=== PATIENT | female | born 1955 | race Hispanic/Latino ===

== ENCOUNTER 2019-11-12 07:46 | Observation (INO) | payer MEDICARE, OTHER ==
[2019-11-07 11:28] LABS: BASOPHILS % 0.5 % (0.0-1.0); EOSINOPHILS # (AUTO) 0.2 (0.0-0.4); EOSINOPHILS % 2.2 % (0.0-6.0); HEMATOCRIT 40.8 % (34.2-44.1); HEMOGLOBIN 13.9 g/dL (12.0-16.0); LYMPHOCYTES # (AUTO) 2.3 (1.0-3.2); LYMPHOCYTES % 28.7 % (18.0-39.1); MEAN CORPUSCULAR HEMOGLOBIN 29.5 pg (28-32); MEAN CORPUSCULAR HGB CONC 34.1 g/dL (31-35); MEAN CORPUSCULAR VOLUME 86.6 fL (81-99); MONOCYTES # (AUTO) 0.8 (0.2-0.8); MONOCYTES % 9.7 % (4.4-11.3); NEUTROPHILS # (AUTO) 4.6 (2.1-6.9); NEUTROPHILS % 58.5 % (38.7-80.0); PLATELET COUNT 213 x10e3/uL (140-360); RED BLOOD COUNT 4.71 x10e6/uL (3.6-5.1); RED CELL DISTRIBUTION WIDTH 12.8 % (11.7-14.4)
[2019-11-07 11:48] LABS: ALBUMIN 4.8 g/dL (3.5-5.0); ALBUMIN/GLOBULIN RATIO 1.5 (0.8-2.0); ANION GAP 14.7 mmol/L (8-16); CREATININE, SERUM 1.04 mg/dL (0.57-1.11); POTASSIUM 3.7 mmol/L (3.5-5.1)
--- NOTE | 2019-11-07 12:24 | Diagnostic Imaging Report ---
Exam: CHEST 2 VIEWS Date: 11/07/2019 12:21 PM INDICATION: ^[id number] ^[id number] ^PRE-OP Comparison: None FINDINGS: Lines/Tubes:None Lungs:The lungs are well inflated. No focal consolidation or pulmonary edema. Pleura:No pleural effusion. No pneumothorax. Heart/Mediastinum:The cardiomediastinal silhouette is normal in size and contour. Bones/Soft Tissues: No acute osseous abnormality. Moderate multilevel degenerative changes of the spine are noted. Upper abdomen: Unremarkable. IMPRESSION: Negative for acute intrathoracic process. Signed by: Sarbjit Gunter MD on 11/07/2019 12:21 PM
[~2019-11-12] VITALS: Ht 160 cm; Wt 91.6 kg
[~2019-11-12 07:46] MED LIST: AMLODIPINE BESYL5 MG PO; Aspirin PO; LOSARTAN-HCTZ1 EAC1 PO; MYRBETRIQ25 MG PO; TYLENOL ARTHRITIS PO; TYLENOL PO
[2019-11-12] MEDS ORDERED: CEFAZOLIN SOD 1 GM/NS 50ML 100 ML IV ONE (08:37)
[2019-11-12] MEDS ORDERED: ESTROGENS CONJUGATED VAGINAL CR 45 GM TUBE PV ONE (08:45)
[2019-11-12] MEDS ORDERED: LIDOCAINE 1% W/EPINEPHRINE 20 ML VIAL ONE ×3 (08:45→10:39)
[2019-11-12] MEDS ORDERED: BUPIVACAINE HCL 0.5% INJ 30 ML VIAL INJ ONE (08:45)
[2019-11-12] MEDS ORDERED: BUPIVACAINE 0.25% 30ML SDV INJ ONE (08:49)
[2019-11-12] MEDS ORDERED: ACETAMINOPHEN 1000 MG/100 ML 100 ML IV ONE (10:24)
[2019-11-12] MEDS ORDERED: BISACODYL 5 MG TAB EC PO PRN (12:15)
[2019-11-12] MEDS ORDERED: DOCUSATE SODIUM 100 MG CAP PO PRN (12:15)
[2019-11-12] MEDS ORDERED: PROMETHAZINE HCL (IM) 25 MG/ML VIAL IM PRN (12:15)
[2019-11-12] MEDS ORDERED: DIPHENHYDRAMINE HCL 25 MG CAP PO PRN (12:15)
[2019-11-12] MEDS ORDERED: MEPERIDINE HCL INJ 25 MG/ML VIAL IV PRN (12:15)
[2019-11-12] MEDS ORDERED: KETOROLAC TROMETHAMINE 30 MG/ML VIAL IM PRN (12:15)
[2019-11-12] MEDS ORDERED: GLYCOPYRROLATE INJ 0.2 MG/ML VIAL ONE (12:29)
[2019-11-12] MEDS ORDERED: PROPOFOL IV EMULSION 10 MG/ML 20 ML VIAL ONE (12:29)
[2019-11-12] MEDS ORDERED: KETOROLAC TROMETHAMINE 30 MG/ML VIAL ONE (12:29)
[2019-11-12] MEDS ORDERED: ONDANSETRON HCL INJ 2MG/ML 2ML 2 MG/ML VIAL ONE (12:29)
[2019-11-12] MEDS ORDERED: NEOSTIGMINE 1 MG/ML 10ML VIAL ONE (12:29)
[2019-11-12] MEDS ORDERED: LIDOCAINE HCL 2% LOCAL INJ 5 ML SDV VIAL INJ ONE (12:29)
[2019-11-12] MEDS ORDERED: DESFLURANE 240 ML BTL INH ONE (12:29)
[2019-11-12] MEDS ORDERED: DEXAMETHASONE SOD PHOS INJ 4 MG/ML VIAL ONE (12:29)
[2019-11-12] MEDS ORDERED: MIDAZOLAM HCL 2 MG/2 ML VIAL ONE (12:36)
[2019-11-12] MEDS ORDERED: FENTANYL CITRATE/PF 100MCG/2 ML INJ ONE (12:36)
[2019-11-12 14:40] VITALS: BP_SYST 111; BP_DIAS 56; BP_DIAS 66
--- NOTE | 2019-11-12 14:40 | NUR ---
PATIENT RECEIVED LYING IN BED AAOX4 IN NO ACUTE DISTRESS. PATIENT IS PRIMARILY [place] SPEAKING BUT CAN CONVERSE MINIMALLY IN THAI. PATIENT REPORTS VAGINAL PAIN 3/10 AND DOES NOT WANT PAIN MEDICATION AT THIS TIME. CALL LIGHT AND BELONGINGS PLACED NEARBY. I WILL CONTINUE TO MONITOR. JULIANNA, PATIENT'S DAUGHTER, MADE AWARE OF ROOM ASSIGNMENT AND NURSE'S STATION PHONE NUMBER.
[2019-11-12 14:43] VITALS: BP 111/66
[2019-11-12] MEDS: LACTATED RINGER'S 1,000 ML IV SCH ×2 (15:05→20:54)
[2019-11-12 20:00] VITALS: BP 127/69
[2019-11-12] MEDS ORDERED: ZOLPIDEM TARTRATE 5 MG TAB PO PRN (21:00)
[2019-11-12 21:29] VITALS: BP 127/69
[2019-11-13] VITALS: BP 118/70
[2019-11-13 04:00] VITALS: BP 121/71
[2019-11-13 05:57] LABS: BASOPHILS % 0.1 % (0.0-1.0); HEMATOCRIT 30.7 % (34.2-44.1); HEMOGLOBIN 10.6 g/dL (12.0-16.0); LYMPHOCYTES # (AUTO) 1.2 (1.0-3.2); LYMPHOCYTES % 11.3 % (18.0-39.1); MEAN CORPUSCULAR HEMOGLOBIN 29.5 pg (28-32); MEAN CORPUSCULAR HGB CONC 34.5 g/dL (31-35); MEAN CORPUSCULAR VOLUME 85.5 fL (81-99); MONOCYTES % 9.3 % (4.4-11.3); NEUTROPHILS # (AUTO) 8.7 (2.1-6.9); NEUTROPHILS % 78.8 % (38.7-80.0); PLATELET COUNT 145 x10e3/uL (140-360); RED BLOOD COUNT 3.59 x10e6/uL (3.6-5.1); RED CELL DISTRIBUTION WIDTH 12.7 % (11.7-14.4)
[2019-11-13] MEDS: LACTATED RINGER'S 1,000 ML IV SCH (06:09)
--- NOTE | 2019-11-13 06:15 | NUR ---
CALLAWAY CARE PROVIDED VIA CASTILE SOAP WIPES
--- NOTE | 2019-11-13 07:29 | NUR ---
REPORT GIVEN TO DAYSHIFT NURSE. ALERT AND ORIENTED. NO SIGNS IV INFILTRATION. BED LOCKED AND IN LOW POSITION. CALL LIGHT WITHIN REACH.
--- NOTE | 2019-11-13 07:32 | NUR ---
SBAR BEDSIDE REPORT RECEIVED FROM PM SHIFT NURSE. PATIENT FOUND SITTING UP IN BED EATING BREAKFAST IN NO ACUTE DISTRESS. PATIENT AAOX4 AND SPEAKS PRIMARILY [place]. PATIENT REPORTS VAGINAL PAIN / AND REFUSED PAIN MEDICATION. PATIENT WAS EDUCATED ON FALL RISK PRECAUTIONS AND VOICED UNDERSTANDING. CALL LIGHT AND BELONGINGS PLACED NEARBY. WILL CONTINUE TO MONITOR.
[2019-11-13 08:00] VITALS: BP 158/88
--- NOTE | 2019-11-13 08:00 | NUR ---
VAGINAL PACKING DISCONTINUED CALLAWAY DISCONTINUED; PATIENT DUE TO VOID PATIENT TOLERATED BOTH REMOVALS VERY WELL
[2019-11-13 08:51] VITALS: BP 128/74
--- NOTE | 2019-11-13 10:00 | NUR ---
PT VOIDED X1
--- NOTE | 2019-11-13 10:33 | NUR ---
I CALLED DR. DURHAM. LEFT VM. AWAITING A RETURN CALL FOR ORDERS
[2019-11-13 12:31] VITALS: BP 121/82
--- NOTE | 2019-11-13 14:42 | NUR ---
PATIENT DISCHARGED HOME VIA PRIVATE VEHICLE. PERIPHERAL IV WAS DISCONTINUED; CATHETER TIP INTACT WITHOUT RESISTANCE. DRY DRESSING APPLIED. PT TOLERATED WELL. PATIENT RECEIVED DISCHARGE SUMMARY, WRITTEN PRESCRIPTIONS, AND EDUCATION SHEETS. PATIENT AND DAUGHTER, JULIANNA, VERBALIZED UNDERSTANDING.
--- NOTE | 2019-11-13 17:52 | Operative Report ---
DATE OF PROCEDURE: SURGEON: Madison Camacho MD PREOPERATIVE DIAGNOSIS: Pelvic organ prolapse. POSTOPERATIVE DIAGNOSIS: Pelvic organ prolapse. PROCEDURE: Vaginal hysterectomy anterior-posterior repair, sacrospinous colpopexy. ASSISTANTS: 1. . 2. Dr. Nemo Sanford. COMPLICATIONS: None. ESTIMATED BLOOD LOSS: 50 mL. DESCRIPTION OF PROCEDURE: The patient was taken to the OR. General anesthesia was induced. She was prepped and draped in normal sterile fashion, placed in dorsal lithotomy position. Bladder was entered with a rubber catheter. subvaginal tissue anteriorly was injected with about 30 mL of lidocaine 1% diluted in 100 mL of saline and injected around the uterus. Circumferential vaginal skin incision was made with a scalpel and the bladder was dissected off the cervix using both sharp and blunt dissection. Anterior wall of the vagina was dissected off the bladder using the Metzenbaum scissors and opened in the midline anteriorly. The pouch of Mo was opened and using the LigaSure the uterosacral ligaments together with the uterine vessels were cauterized and cut. The same was repeated on the other side. Following this, the apex of the broad ligament was held with LigaSure, cauterized and cut. Both sides of uterus were freed and sent to pathology. Hemostasis was found to be adequate. Following this, using the index finger the pelvic fascia was pierced and ischial spine and sacrospinous ligament was palpated. Capio needle toribio was applied on sacrospinous ligament on the side of the other end was attached to the vaginal fold following that pubocervical ligaments on each side were approximated using Vicryl 0 stitch and excess vaginal skin was trimmed off using the curved Steward scissors. The vagina was closed with interlocking sutures of Vicryl 2-0. Following this the sacrospinous sutures were tied and the vaginal vault was lifted and posterior repair was performed with two Allis clamps applied about 1 cm from the fourchette in the middle portion between the two Allis clamp was excised using curved Steward scissors. The vagina was dissected out of the perineum using both sharp and blunt dissection and the vagina was opened posteriorly using the Metzenbaum scissors. The two flaps of vagina dissected off the rectum using both sharp and blunt dissection. The levator ani were approximated using Vicryl 0 stitch, two sutures were used. Excess vaginal skin was trimmed off posteriorly and the vagina was closed with interlocking stitches of Vicryl 2-0 and subcu for the perineal skin. Rectal exam revealed intact rectum. Sierra catheter was placed inside the bladder and revealed clear urine. Vaginal pack was inserted. The patient tolerated the procedure well. Lap, instruments and needle counts were correct x2 at the end of procedure. Madison Camacho MD DD/GUMARO /[id number] cc: Kali Moran
== END 2019-11-13 14:42 | disposition home or self-care (01) ==
LOC: OR 07:46 → PACU V 12:13 → MED/SURG 14:43
PROVIDERS: ADMIT Obstetrics & Gynecology; ATTEND Obstetrics & Gynecology
DX: N81.89 Other female genital prolapse (principal); K21.9 Gastro-esophageal reflux disease without esophagitis; E66.9 Obesity, unspecified; Z68.35 Body mass index [BMI] 35.0-35.9, adult; I10 Essential (primary) hypertension; Z01.810 Encounter for preprocedural cardiovascular examination; Z01.812 Encounter for preprocedural laboratory examination; Z01.818 Encounter for other preprocedural examination; Z11.59 Encounter for screening for other viral diseases
CPT/HCPCS: 36415 ×2; 57260; 57282; 58260; 71046; 80053; 85025 ×2; 86850; 86900; 88305; 93005; G0378 ×2; J0131; J0690; J1100; J1885; J2001; J2250; J2405; J2704; J2710; J3010; J7121 ×2; U0002

== ENCOUNTER 2020-09-14 08:27 | Observation (INO) | payer MEDICARE ==
[2020-09-09 14:44] LABS: BASOPHILS % 0.4 % (0.0-1.0); EOSINOPHILS # (AUTO) 0.2 (0.0-0.4); EOSINOPHILS % 2.1 % (0.0-6.0); HEMOGLOBIN 13.8 g/dL (12.0-16.0); LYMPHOCYTES # (AUTO) 2.1 (1.0-3.2); LYMPHOCYTES % 29.4 % (18.0-39.1); MEAN CORPUSCULAR HEMOGLOBIN 29.7 pg (28-32); MEAN CORPUSCULAR HGB CONC 33.7 g/dL (31-35); MEAN CORPUSCULAR VOLUME 88.2 fL (81-99); MONOCYTES # (AUTO) 0.6 (0.2-0.8); MONOCYTES % 8.8 % (4.4-11.3); NEUTROPHILS # (AUTO) 4.1 (2.1-6.9); PLATELET COUNT 203 x10e3/uL (140-360); RED BLOOD COUNT 4.65 x10e6/uL (3.6-5.1); RED CELL DISTRIBUTION WIDTH 13.1 % (11.7-14.4)
[2020-09-09 15:03] LABS: ANION GAP 15.5 mmol/L (8-16); CALCIUM 10.2 mg/dL (8.4-10.2); CREATININE, SERUM 0.98 mg/dL (0.57-1.11); POTASSIUM 3.5 mmol/L (3.5-5.1)
[~2020-09-14] VITALS: Ht 160 cm; Wt 88.5 kg
[~2020-09-14 08:27] MED LIST changes: +ROPIVACAINE 246.25 MG, EPINEPHRINE HCL 1:1000 1ML 0.5 MG, CLONIDINE HCL 0.08 MG, KETORO... INJ ONE
[2020-09-14] MEDS ORDERED: CELECOXIB 200 MG CAP ONE (10:16)
[2020-09-14] MEDS ORDERED: DEXAMETHASONE SOD PHOS 10 MG/1 ML VIAL ONE (10:16)
[2020-09-14] MEDS ORDERED: GABAPENTIN 300 MG CAP ONE (10:17)
[2020-09-14] MEDS ORDERED: SODIUM CHLORIDE 0.9% 50ML 100 ML ONE (10:17)
[2020-09-14] MEDS ORDERED: SODIUM CHLORIDE 0.9% 500ML 500 ML ONE (13:03)
[2020-09-14] MEDS ORDERED: Vancomycin IV 1,000 MG ONE (13:03)
[2020-09-14] MEDS ORDERED: SEVOFLURANE INHAL SOLN 250 ML PEN BTL ONE (13:28)
[2020-09-14] MEDS ORDERED: PHENYLEPHRINE HCL 1% 10 MG/ML VIAL ONE (13:28)
[2020-09-14] MEDS ORDERED: ONDANSETRON HCL INJ 2MG/ML 2ML 2 MG/ML VIAL ONE (13:28)
[2020-09-14] MEDS ORDERED: POVIDONE IODINE 0.05% 0.05 % ML PO ONE (13:28)
[2020-09-14] MEDS ORDERED: PROPOFOL IV EMULSION 10 MG/ML 20 ML VIAL ONE (13:28)
[2020-09-14] MEDS ORDERED: BUPIVACAINE 7.5MG/ML /DEXTROSE 82.5MG/ML 2 ML AMP INJ ONE (13:34)
[2020-09-14] MEDS ORDERED: TRANEXAMIC ACID 1,000 MG/10 ML ML ONE (13:50)
[2020-09-14] MEDS ORDERED: HYDROGEN PEROXIDE 120 ML BTL ONE (13:51)
[2020-09-14] MEDS ORDERED: ACETAMINOPHEN 1000 MG/100 ML 100 ML IV ONE ×2 (15:07→15:08)
[2020-09-14] MEDS ORDERED: HYDROCODONE/APAP 5MG-325MG TAB PO PRN (16:15)
[2020-09-14] MEDS ORDERED: DOCUSATE SODIUM 100 MG CAP PO PRN (16:15)
[2020-09-14] MEDS ORDERED: HYDROCODONE/APAP 7.5MG-325MG 1 EA TAB PO PRN (16:15)
[2020-09-14] MEDS ORDERED: KETOROLAC TROMETHAMINE 30 MG/ML VIAL IV PRN (16:15)
[2020-09-14] MEDS ORDERED: ACETAMINOPHEN 650 MG SUPP PR PRN (16:15)
[2020-09-14] MEDS ORDERED: ONDANSETRON HCL INJ 2MG/ML 2ML 2 MG/ML VIAL IV PRN (16:15)
[2020-09-14] MEDS ORDERED: DIPHENHYDRAMINE HCL INJ 50 MG/ML VIAL IV PRN (16:15)
[2020-09-14] MEDS ORDERED: FENTANYL CITRATE/PF 100MCG/2 ML INJ ONE (16:36)
[2020-09-14 17:42] VITALS: BP 93/58
[2020-09-14 17:46] VITALS: BP 93/58
[2020-09-14] MEDS: CELECOXIB 100 MG CAP PO SCH (18:20)
[2020-09-14] MEDS: ASPIRIN 325 MG TAB PO SCH (18:20)
[2020-09-14 20:00] VITALS: BP 91/55
[2020-09-14 21:00] VITALS: BP 91/55
[2020-09-14] MEDS ORDERED: ZOLPIDEM TARTRATE 5 MG TAB PO PRN (21:00)
[2020-09-14] MEDS: Cefazolin 1 GM in SODIUM CHLORIDE 0.9% 50ML 50 ML IV SCH (21:20)
[2020-09-14] MEDS: SODIUM CHLORIDE 0.9% 1000ML 1,000 ML IV SCH (21:20)
[2020-09-15] VITALS: BP 104/70
[2020-09-15 04:00] VITALS: BP 94/61
[2020-09-15 04:53] LABS: HEMATOCRIT 31.6 % (34.2-44.1); HEMOGLOBIN 10.6 g/dL (12.0-16.0)
[2020-09-15] MEDS: SODIUM CHLORIDE 0.9% 1000ML 1,000 ML IV SCH (05:02)
[2020-09-15] MEDS: Cefazolin 1 GM in SODIUM CHLORIDE 0.9% 50ML 50 ML IV SCH (05:02)
[2020-09-15 08:00] VITALS: BP_SYST 105; BP_DIAS 63; BP_DIAS 67
[2020-09-15] MEDS: CELECOXIB 100 MG CAP PO SCH (09:55)
[2020-09-15] MEDS: ASPIRIN 325 MG TAB PO SCH (09:56)
[2020-09-15] MEDS ORDERED: ACETAMINOPHEN 1000 MG/100 ML IV PRN (16:15)
== END 2020-09-15 11:05 | disposition home or self-care (01) ==
LOC: OR 08:27 → PACU V 16:04 → MED/SURG 17:39
PROVIDERS: ADMIT Specialist; ATTEND Specialist
DX: M16.0 Bilateral primary osteoarthritis of hip (principal); Z96.642 Presence of left artificial hip joint; Z20.822 Contact with and (suspected) exposure to COVID-19; E78.5 Hyperlipidemia, unspecified; Z01.818 Encounter for other preprocedural examination; I95.9 Hypotension, unspecified; D64.9 Anemia, unspecified; I12.9 Hypertensive chronic kidney disease with stage 1 through stage 4 chronic kidney disease, or unspecified chronic kidney disease; N18.2 Chronic kidney disease, stage 2 (mild)
CPT/HCPCS: 27130; 36415 ×2; 72170; 80048; 85014; 85018; 85025; 86850; 86900; 86920; 97110; 97116 ×2; 97162; 97530 ×2; C1713 ×3; C1776 ×2; G0378 ×2; J0131; J0171; J0690 ×2; J1100; J1885; J2370; J2405; J2704; J2795; J3010; J3370; J7030 ×2; J7040; U0002